=== PATIENT | female | born 1970 | race Caucasian/White ===

== ENCOUNTER 2017-11-24 17:26 | Emergency (ER) | payer MEDICAID ==
[~2017-11-24] VITALS: Ht 154.9 cm; Wt 67.6 kg
[2017-11-24 17:42] VITALS: BP 138/88
--- NOTE | 2017-11-24 18:08 | NUR ---
Patient ambulated to bed 7. RN evaluating patient at bedside.
--- NOTE | 2017-11-24 18:16 | NUR ---
left lower pelvic pain radiating to vag area, denies vag bleeding, +dysuria, +pruritis to vag area. Already seen her pcp and given rx, but pain is unbearable. med hx: none rx: doxycycline
--- NOTE | 2017-11-24 19:14 | NUR ---
Report given to ROLANDO Oates for continuation of care
[2017-11-24] MEDS ORDERED: KETOROLAC 60 MG/2 ML VIAL IM ONE (20:05)
[2017-11-24 20:41] VITALS: BP 130/90
--- NOTE | 2017-11-24 20:42 | NUR ---
Patient discharged with v/s stable. Written and verbal after care instructions given and explained. Patient alert, oriented and verbalized understanding of instructions. Ambulatory with steady gait. All questions addressed prior to discharge. ID band removed. Patient advised to follow up with PMD. Rx of norco, zofran and motrin given. Patient educated on indication of medication including possible reaction and side effects. Opportunity to ask questions provided and answered.
== END 2017-11-24 20:41 | disposition home or self-care (01) ==
LOC: MED 17:26
DX: R10.32 Left lower quadrant pain (principal); R30.0 Dysuria; R11.0 Nausea; I10 Essential (primary) hypertension
CPT/HCPCS: 81002; 81025; 96372; 99283; J1885

== ENCOUNTER 2020-03-11 20:05 | Emergency (ER) | payer MEDICAID ==
[~2020-03-11] VITALS: Ht 149.9 cm; Wt 68.0 kg
[2020-03-11 20:35] VITALS: BP 170/100
--- NOTE | 2020-03-11 20:35 | NUR ---
TO TENT # 05 AMBULATORY
--- NOTE | 2020-03-11 21:28 | NUR ---
SWAB DONE AND SENT TO LAB
--- NOTE | 2020-03-11 21:40 | NUR ---
SEEN AND EXAMINED BY RENATE WITH ORDERS AND CARRIED OUT
[2020-03-11 21:54] VITALS: BP 160/87
== END 2020-03-11 21:54 | disposition home or self-care (01) ==
LOC: MED 20:05
DX: M79.10 Myalgia, unspecified site (principal); Z20.828 Contact with and (suspected) exposure to other viral communicable diseases; I10 Essential (primary) hypertension
CPT/HCPCS: 99283; U0003